=== PATIENT | female | born 1965 | race American Indian/Alaskan Native ===

== ENCOUNTER 2024-04-03 10:28 | Emergency (ER) | payer OTHER ==
[2024-04-03] MEDS: Ibuprofen 600 MG Tab PO ONE (11:33)
== END 2024-04-03 14:10 | disposition home or self-care (01) ==
LOC: MW.ED 10:28
DX: S90.31XA Contusion of right foot, initial encounter (principal); Z79.82 Long term (current) use of aspirin; Z79.890 Hormone replacement therapy; Z79.899 Other long term (current) drug therapy; W20.8XXA Other cause of strike by thrown, projected or falling object, initial encounter
CPT/HCPCS: 29515; 73620; 99283; A9270